=== PATIENT | male | born 1945 | race Caucasian/White ===

== ENCOUNTER → 2020-11-24 | Outpatient (CLI) | payer MEDICARE, BC ==
[~2020-11-24] MED LIST: ALDACTONE25 MG PO; B COMPLEX1 EACH PO; COQ-10100 MG PO; COREG 12.5MG12.5 MG PO; CRANBERRY PLUS1 EACH PO; ECOTRIN81 MG PO; ELIQUIS5 MG PO; FISH OIL 1,0001 EACH PO; GABAPENTIN300 MG PO; GLUCOPHAGE850 MG PO; HYALURONIC ACI1 EACH PO; HYDROCHLOROTHIA25 MG PO; KENALOG CREAM 015 GM TOP; LIDEX CREAM 0.030 GM EXT; LIORESAL TAB 1010 MG PO; LIPITOR TAB 2020 MG PO; LISINOPRIL10 MG PO; LUTEIN40 MG PO; LYCOPENE10 MG PO; MELATONIN10 MG PO; NORVASC 5 MG TAB5 MG PO; PLAVIX 75 MG TA75 MG PO; PRINIVIL20 MG PO; SAW PALMETTO 1160 MG PO; SEROQUEL XR50 MG PO; SEROQUEL25 MG PO; TYLENOL 500 MG500 MG PO; ULTRAM50 MG PO
== END ==
LOC: US 11-15 10:15
DX: I65.23 Occlusion and stenosis of bilateral carotid arteries (principal)
CPT/HCPCS: 93880

== ENCOUNTER → 2022-04-25 | Outpatient (CLI) | payer MEDICARE, BC ==
[2022-04-25 13:50] LABS: HEMOGLOBIN 11.3 gm/dl (14.0-17.5); RED BLOOD COUNT 3.61 M/UL (4.20-5.50); WHITE BLOOD COUNT 9.5 K/UL (4.5-11.0)
== END ==
LOC: LAB 13:08
PROVIDERS: Nurse Practitioner
DX: R53.83 Other fatigue (principal); R63.4 Abnormal weight loss
CPT/HCPCS: 36415; 71046; 80053; 82550; 84443; 84484; 85025; 85652; 93005